=== PATIENT | male | born 1990 | race African-American/Black ===

== ENCOUNTER 2019-08-10 19:59 | Emergency (ER) | payer OTHER ==
[~2019-08-10] VITALS: Ht 182.9 cm; Wt 108.9 kg
[2019-08-10 20:06] VITALS: BP 136/69
--- NOTE | 2019-08-10 20:11 | NUR ---
PT AMBULATED TO BED 6, STEADY GAIT.
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
--- NOTE | 2019-08-10 20:30 | NUR ---
DR. HINKLE AT BEDSIDE EVALUATING PT.
[2019-08-10] MEDS ORDERED: KETOROLAC 30 MG/ML VIAL IM ONE (20:50)
[2019-08-10] MEDS ORDERED: CYCLOBENZAPRINE 10 MG TAB PO ONE (20:50)
--- NOTE | 2019-08-10 21:03 | NUR ---
PT TAKEN TO XRAY VIA WHEELCHAIR
--- NOTE | 2019-08-10 21:04 | NUR ---
PT TRANSPORTED TO X-RAY VIA WHEELCHAIR.
[2019-08-10 22:02] VITALS: BP 136/69
--- NOTE | 2019-08-10 22:03 | NUR ---
Patient discharged with v/s stable. Written and verbal after care instructions given and explained. Patient alert, oriented and verbalized understanding of instructions. Ambulatory with steady gait. All questions addressed prior to discharge. ID band removed. Patient advised to follow up with PMD. Rx of FLEXERIL AND IBUPROFEN given. Patient educated on indication of medication including possible reaction and side effects. Opportunity to ask questions provided and answered.
[2019-08-10] MEDS ORDERED: CRUSHER, PILL MC ONE (22:10)
== END 2019-08-10 22:01 | disposition home or self-care (01) ==
LOC: MED 19:59
DX: M54.2 Cervicalgia (principal); V89.2XXA Person injured in unspecified motor-vehicle accident, traffic, initial encounter; Y93.89 Activity, other specified; Y92.89 Other specified places as the place of occurrence of the external cause; Y99.8 Other external cause status
CPT/HCPCS: 70360; 96372; 99283; J1885